=== PATIENT | female | born 1970 | race Caucasian/White ===

== ENCOUNTER 2017-02-02 07:42 | Day surgery (SDC) | payer OTHER ==
[2017-02-02 08:51] LABS: PROTHROMBIN TIME 12.8 SEC (11.4-15.4)
[2017-02-02 08:52] LABS: PARTIAL THROMBOPLASTIN TIME 28.3 SEC (23.5-35.8)
--- NOTE | 2017-02-02 11:16 | RADIOLOGY REPORT (SQ) ---
EXAM DESCRIPTION: LUMBAR PUNCTURE; FLUORO/NEEDLE PLACEMENT/SPINE COMPLETED DATE/TIME: 02/02/2017 10:55 am REASON FOR STUDY: MS G35 MULTIPLE SCLEROSIS COMPARISON: None. FLUOROSCOPY TIME: 30 seconds 2 radiographic images saved to PACS. TECHNIQUE: Fluoroscopic guided lumbar puncture. LIMITATIONS: None. PROCEDURE: After written consent and assessment were obtained, the patient was brought into the fluo roscopy room and placed prone on the table. The patient's lower back was prepped in a sterile fashio n and an entry site was selected under live fluoroscopic guidance. The entry site was anesthetized wi th 4 mL of 1% lidocaine. A 22 gauge spinal needle was advanced through the skin and into the thecal s ac at the left paracentral L2-3 level. After approximately 8 ml was drained, the needle was removed and a sterile bandage was placed of the site. Specimens were sent to the lab for testing. A fluoros copic spot image was saved to PACS confirming level access. FINDINGS: Clear CSF, normal opening pressure 13 cm of water. IMPRESSION: Lumbar puncture under fluoroscopy. No immediate complication. CSF testing in the lab. COMMENT: Patient medication list reviewed: Yes- Quality ID# [id number]:Eligible professional attests to doc umenting in the medical record they obtained, updated, or reviewed the patient's current medications. . Quality ID 145: Final reports for procedures using fluoroscopy that document radiation exposure la priyanka, or exposure time and number of fluorographic images (if radiation exposure indices are not avail able) TECHNICAL DOCUMENTATION: JOB ID: [id number] [email or web address]- All Rights Reserved
[2017-02-02 11:27] LABS: APPEARANCE ALL TUBES CLEAR; RBC AVERAGE 75.5; RBC SIDE 1 76; RBC SIDE 2 75
[2017-02-02 11:28] LABS: RBC DILUENT USED NONE USED; RBC DILUTION FACTOR 1; TOTAL RBC SQUARES COUNTED 225; WHITE BLOOD CELL,CSF 3 /uL (0-5)
[2017-02-02 11:44] LABS: GLUCOSE,CSF 103 mg/dL (40-70)
[2017-02-02 12:45] VITALS: BP 109/69
[2017-02-03 17:37] LABS: ALBUMIN CSF 23 mg/dL (11-48); CSF IGG INDEX 0.5 (0.0-0.7); IGG SYNTHESIS RATE CSF -2.2 mg/day (-9.9 TO +3.3); IGG/ALBUMIN RATIO CSF 0.17 (0.00-0.25); IMMUNOGLOBULIN G CSF 3.8 mg/dL (0.0-8.6); IMMUNOGLOBULIN G SERUM 1279 mg/dL (700-1600)
[2017-02-04 12:56] LABS: CSF/SERUM ALBUMIN INDEX 6 (0-8)
== END 2017-02-02 12:30 | disposition home or self-care (01) ==
LOC: RAD 07:42
PROVIDERS: ATTEND Specialist
PROC: 009U3ZX Drainage of Spinal Canal, Percutaneous Approach, Diagnostic (ICD-10-PCS; principal; 2017-02-02)
DX: G35 Multiple sclerosis (principal); G40.909 Epilepsy, unspecified, not intractable, without status epilepticus; Z79.899 Other long term (current) drug therapy
CPT/HCPCS: 36415; 62270; 77003; 82784; 82945; 83916; 84157; 85610; 85730; 87070; 87205; 89050